=== PATIENT | male | born 1935 | race Caucasian/White ===

== ENCOUNTER 2019-02-13 11:20 | Emergency (ER) | payer MEDICARE, OTHER ==
[~2019-02-13] VITALS: Ht 172.7 cm; Wt 72.6 kg
--- OUTSIDE RECORDS SUMMARY | 2019-02-13 11:22 | XMS REPORT ---
Author Author [facility] Address Unknown Phone Unavailable Care Team Providers Care Manufacturing Test Technician Name Role Phone Unavailable Unavailable Payers Payer Name Policy Type Policy Number Effective Date Expiration Date Problems This patient has no known problems. Allergies, Adverse Reactions, Alerts Allergy Name Allergy Type Status Severity Reaction(s) Onset Date Inactive Date Treating Clinician Comments No Known Allergies DA Active U 2019-01-23 00:00:00 No Known Allergies DA Active U 2018-12-08 00:00:00 No Known Drug Intolerances DA Active U 2009-08-24 00:00:00 Medications This patient has no known medications. Results Test Description Test Time Test Comments Text Results Atomic Results Result Comments URINALYSIS COMPLETE 2018-12-08 23:58:00 UA COLOR (test code=COLU) COLORLESS YELLOW UA APPEARANCE (test code=APPU) CLEAR CLEAR UA GLUCOSE DIPSTICK (test code=DGLUU) NEGATIVE mg/dL NEGATIVE UA BILIRUBIN DIPSTICK (test code=BILU) NEGATIVE mg/dL NEGATIVE UA KETONE DIPSTICK (test code=KETU) NEGATIVE mg/dL NEGATIVE UA SPECIFIC GRAVITY (test code=SGU) 1.002 1.001-1.035 UA BLOOD DIPSTICK (test code=AMY) 1+ (Small) mg/dL NEGATIVE UA PH DIPSTICK (test code=JOHN) 6.0 5.0-8.0 UA PROTEIN DIPSTICK (test code=PROU) NEGATIVE mg/dL NEGATIVE UA UROBILINIOGEN DIPSTICK (test code=URO) NEGATIVE mg/dL NEGATIVE UA NITRITE DIPSTICK (test code=THAD) NEGATIVE NEGATIVE UA LEUKOCYTE ESTERASE W REFLEX (test code=LEUUR) TRACE Lizet/uL NEGATIVE UA WBC (test code=WBCU) 0-5 per HPF 0-5 UA RBC (test code=RBCU) 0-2 #/HPF 0-5 UA EPITHELIAL CELLS (test code=EPIU) FEW per HPF FEW Urine Source? Clean Catch
[2019-02-13] MEDS ORDERED: CLONIDINE HCL0.1 MG PO (11:44)
[2019-02-13] MEDS ORDERED: AMLODIPINE BESY10 MG PO (11:44)
[2019-02-13 12:11] LABS: CLARITY,URINE SL CLOUDY (CLEAR); COLOR,URINE YELLOW (YELLOW)
[2019-02-13 12:12] LABS: KETONES,URINE NEGATIVE (NEGATIVE)
[2019-02-13 12:13] LABS: PROTEIN,URINE DIPSTICK 2+ (NEGATIVE)
[2019-02-13 12:14] LABS: NITRITE,URINE NEGATIVE (NEGATIVE)
[2019-02-13 12:15] LABS: BILIRUBIN,URINE NEGATIVE (NEGATIVE); LEUKOCYTE ESTERASE ,URINE TRACE (NEGATIVE); URINE UROBILINOGEN 0.2 mg/dL (0.2 - 1)
[2019-02-13 12:39] LABS: BACTERIA,URINE RARE /HPF; EPITHELIAL CELLS,URINE FEW /LPF; WBC,URINE (MAN) 0-5 /HPF (0-5)
[2019-02-13] MEDS ORDERED: LEVAQUIN500 MG PO (12:48)
[2019-02-13] MEDS ORDERED: FLOMAX0.4 MG PO (12:48)
[2019-02-13 12:50] VITALS: BP 141/85
== END 2019-02-13 12:56 | disposition home or self-care (01) ==
LOC: ER 11:20
DX: N39.0 Urinary tract infection, site not specified (principal); N40.0 Benign prostatic hyperplasia without lower urinary tract symptoms
CPT/HCPCS: 81001; 99282

== ENCOUNTER 2019-03-04 09:22 | Emergency (ER) | payer MEDICARE, OTHER ==
[~2019-03-04] VITALS: Ht 172.7 cm; Wt 72.6 kg
[~2019-03-04 09:22] MED LIST: AMLODIPINE BESY10 MG PO; CLONIDINE HCL0.1 MG PO; FLOMAX0.4 MG PO; LEVAQUIN500 MG PO
--- NOTE | 2019-03-04 11:26 | NUR ---
PATIENT CONCERNED NOW THAT HIS BP IS NOW 128/81 AND HE IS REQUESTING PEDIALYTE. PER CATHI Urban "GIVE HIM SOME PEDIALYTE". THEN PATIENT ASKING ME FOR INSTRUCTIONS ON HOW TO TAKE IT. TOLD HIM WE DON'T NORMALLY GIVE THIS FOR HIS BLOOD PRESSURE, SO DON'T HAVE INSTRUCTIONS TO GIVE HIM. PATIENT UPSET. SAID WE DID NOTHING FOR HIM. EMOTIONAL SUPPORT GIVEN. LET PATIENT KNOW WE HAVE KEPT HIM IN THE HALLWAY CHAIR TO MONITOR HIM CLOSELY. WHEN ATTEMPTING TO TALKE TO PATIENT HE INTERUPTS AND STATES, "YOU NEED TO LISTEN TO ME, YOUR NOT PAYING ATTENTION. PATIENT WILL NOT LISTEN TO REASON AND INTERMITTENTLY GRABS AT DISCHARGE PAPERWORK TO LEAVE.
== END 2019-03-04 11:39 | disposition home or self-care (01) ==
LOC: ER 09:22
DX: I10 Essential (primary) hypertension (principal)
CPT/HCPCS: 99282

== ENCOUNTER 2019-05-30 08:40 | Emergency (ER) | payer MEDICARE, OTHER ==
[~2019-05-30] VITALS: Ht 172.7 cm; Wt 72.6 kg
--- NOTE | 2019-05-30 08:50 | NUR ---
PATIENT REFUSING TO DISROBE AND PLACE [facility] GOWN ON AND RUFUSING TO BE PLACED ON BEDSIDE FILTER BED PLACER. NOTIFIED DR BAEZ.
[2019-05-30 09:35] VITALS: BP 154/95
== END 2019-05-30 09:39 | disposition home or self-care (01) ==
LOC: ER 08:40
DX: I10 Essential (primary) hypertension (principal)
CPT/HCPCS: 93005; 99282

== ENCOUNTER → 2020-06-14 | Outpatient (CLI) | payer OTHER ==
--- NOTE | 2020-06-14 12:58 | Diagnostic Imaging Report ---
Testicular ultrasound, with Doppler examination. History: A similar pain. Comparison: None available. Discussion: Evaluation of the scrotum was performed in the transverse and longitudinal planes. Color Doppler and spectral wave form analysis was performed bilaterally. The testes are normal in size and echogenicity bilaterally, measuring 3.7 x 2.4 x 2.7 cm on the right and 3.8 x 2.3 x 3.0 cm on the left. There is no evidence of a mass. Normal and symmetrical flow is present within both testes. Small right hydrocele is noted. An oval anechoic structure is present in the right epididymal head measuring 3.6 x 1.6 x 3 cm. Similar cystic structure is present in the left epididymal head measuring 0.8 x 1.1 x 0.8 cm. Right inguinal peristalsing structure is noted. IMPRESSION: 1. Bilateral epididymal head cysts versus spermatoceles. 2. No testicular abnormality. 3. Bowel containing right inguinal hernia. Signed by: Carols Puckett on 06/14/2020 12:55 PM
== END ==
LOC: US 10:57
PROVIDERS: ATTEND Family Medicine
DX: N50.819 Testicular pain, unspecified (principal); K40.90 Unilateral inguinal hernia, without obstruction or gangrene, not specified as recurrent
CPT/HCPCS: 76870; 93976

== ENCOUNTER → 2020-07-09 | Day surgery (SDC) | payer OTHER, MEDICARE ==
[~2020-07-09] MED LIST changes: +BUPIVACAINE 0.25% 30ML SDV INJ ONE; +CEFAZOLIN SOD 1 GM/NS 50ML 50 ML IV ONE; +DEXAMETHASONE SOD PHOS INJ 4 MG/ML VIAL ONE; +EPHEDRINE SULFATE INJ 50 MG/ML VIAL ONE; +FENTANYL CITRATE/PF 100MCG/2 ML INJ ONE; +KETOROLAC TROMETHAMINE 30 MG/ML VIAL ONE; +LIDOCAINE HCL 2% LOCAL INJ 5 ML SDV VIAL INJ ONE; +METOPROLOL SUCC50 MG PO; +ONDANSETRON HCL INJ 2MG/ML 2ML 2 MG/ML VIAL ONE; +PROPOFOL IV EMULSION 10 MG/ML 20 ML VIAL ONE; +SEVOFLURANE INHAL SOLN 250 ML PEN BTL ONE
--- NOTE | 2020-07-09 10:07 | Operative Report ---
DATE OF PROCEDURE: SURGEON: Ricky Nieves MD PREOPERATIVE DIAGNOSIS: Incarcerated right inguinal hernia. POSTOPERATIVE DIAGNOSIS: Incarcerated right inguinal hernia. PROCEDURE PERFORMED: Repair of right inguinal hernia with Ultrapro Hernia System, oval type. ANESTHESIA: General. DRAINS: None. COMPLICATIONS: None. INDICATION AND FINDINGS: The patient is a pleasant 85-year-old healthy male admitted for repair of symptomatic right inguinal hernia with multiple episodes of incarceration. INTRAOPERATIVE FINDINGS: The patient had an indirect hernia sac that at this time was empty and some bulging of the canal. DESCRIPTION OF PROCEDURE: With the patient lying on the operative table in the supine position after administration of general anesthesia, he was given a preemptive ilioinguinal incisional block with 0.25% Marcaine. An incision was made across the right groin, deepened through the skin and subcutaneous tissue, Diane fascia until the external oblique aponeurosis was identified. This was incised along the course of its fibers transecting the external inguinal ring. Medial and lateral leaves were developed. The cord was mobilized at the level of the pubic tubercle and retracted away from the operative field by [place] drain. The cremaster vein was incised and indirect hernia sac was identified highly ligated with 2-0 silk. It was empty. The transversalis fascia was incised and then a pocket was created using blunt dissection to accommodate the mesh. The mesh was then deployed with the underlay part of the mesh over the direct space and the overlay part of the mesh over the inguinal canal floor. A slit was made to accommodate the cord and then the mesh was secured to the local tissues with a combination of 2-0 Ethibond and 2-0 Vicryl stitches and then the mesh appeared to be lying flat in good position. After we did that, we irrigated the wound, and then closed the wound using 0-Vicryl for the external oblique aponeurosis, used 2-0 Vicryl for the external oblique aponeurosis. A 2-0 plain catgut for the soft tissues and the skin was closed using didier during the procedure. A local field block was also used using 0.25% Marcaine with epinephrine. Sterile dressing was applied. The patient tolerated the procedure well taken to recovery room in stable condition. Addendum: During this procedure, the ilioinguinal nerve was identified and preserved. MD NATE Ro/HECTOR /[id number]
[2020-07-09 10:40] VITALS: BP 148/82
== END | disposition home or self-care (01) ==
LOC: OR 06:04
PROVIDERS: ATTEND Surgery
DX: K40.30 Unilateral inguinal hernia, with obstruction, without gangrene, not specified as recurrent (principal); I10 Essential (primary) hypertension; Z01.810 Encounter for preprocedural cardiovascular examination; Z01.812 Encounter for preprocedural laboratory examination; Z11.59 Encounter for screening for other viral diseases
CPT/HCPCS: 36415; 49507; 84132; 93005; C1781; J0690; J1100; J1885; J2001; J2405; J2704; U0002; J3010

== ENCOUNTER 2020-09-01 10:27 | Emergency (ER) | payer MEDICARE, OTHER ==
[~2020-09-01] VITALS: Ht 172.7 cm; Wt 72.6 kg
[~2020-09-01 10:27] MED LIST changes: -BUPIVACAINE 0.25% 30ML SDV INJ ONE; -CEFAZOLIN SOD 1 GM/NS 50ML 50 ML IV ONE; -DEXAMETHASONE SOD PHOS INJ 4 MG/ML VIAL ONE; -EPHEDRINE SULFATE INJ 50 MG/ML VIAL ONE; -FENTANYL CITRATE/PF 100MCG/2 ML INJ ONE; -KETOROLAC TROMETHAMINE 30 MG/ML VIAL ONE; -LIDOCAINE HCL 2% LOCAL INJ 5 ML SDV VIAL INJ ONE; -ONDANSETRON HCL INJ 2MG/ML 2ML 2 MG/ML VIAL ONE; -PROPOFOL IV EMULSION 10 MG/ML 20 ML VIAL ONE; -SEVOFLURANE INHAL SOLN 250 ML PEN BTL ONE
== END 2020-09-01 11:05 | disposition home or self-care (01) ==
LOC: ER 10:57
DX: I10 Essential (primary) hypertension (principal)
CPT/HCPCS: 99282

== ENCOUNTER 2020-09-28 14:36 | Emergency (ER) | payer MEDICARE, OTHER ==
[~2020-09-28] VITALS: Ht 172.7 cm; Wt 72.6 kg
[2020-09-28] MEDS ORDERED: HYDRALAZINE HCL 25 MG TAB PO ONE (16:45)
== END 2020-09-28 17:22 | disposition home or self-care (01) ==
LOC: ER 16:50
DX: I10 Essential (primary) hypertension (principal)
CPT/HCPCS: 99282

== ENCOUNTER 2020-10-16 05:15 | Emergency (ER) | payer MEDICARE, OTHER ==
[~2020-10-16] VITALS: Ht 172.7 cm; Wt 72.6 kg
[2020-10-16] MEDS ORDERED: HYDROCHLOROTHIA25 MG PO (05:48)
== END 2020-10-16 05:53 | disposition home or self-care (01) ==
LOC: ER 05:52
DX: I10 Essential (primary) hypertension (principal)
CPT/HCPCS: 99282

== ENCOUNTER 2021-10-15 01:43 | Emergency (ER) | payer MEDICARE, OTHER ==
[~2021-10-15] VITALS: Ht 172.7 cm; Wt 72.6 kg
[~2021-10-15 01:43] MED LIST changes: +HYDROCHLOROTHIA25 MG PO
== END 2021-10-15 02:08 | disposition home or self-care (01) ==
LOC: ER 01:58
DX: I10 Essential (primary) hypertension (principal)
CPT/HCPCS: 99282

== ENCOUNTER 2023-03-07 20:30 | Emergency (ER) | payer MEDICARE, OTHER ==
[~2023-03-07] VITALS: Ht 172.7 cm; Wt 72.6 kg
[2023-03-07 21:13] LABS: BASOPHILS % 0.4 % (0.0-1.0); EOSINOPHILS # (AUTO) 0.2 (0.0-0.4); EOSINOPHILS % 2.7 % (0.0-6.0); HEMATOCRIT 37.3 % (38.2-49.6); HEMOGLOBIN 13.1 g/dL (14.0-18.0); LYMPHOCYTES # (AUTO) 2.6 (1.0-3.2); LYMPHOCYTES % 37.2 % (18.0-39.1); MEAN CORPUSCULAR HEMOGLOBIN 32.4 pg (28-32); MEAN CORPUSCULAR HGB CONC 35.1 g/dL (31-35); MEAN CORPUSCULAR VOLUME 92.3 fL (81-99); MONOCYTES # (AUTO) 0.7 (0.2-0.8); MONOCYTES % 10.4 % (4.4-11.3); NEUTROPHILS # (AUTO) 3.5 (2.1-6.9); PLATELET COUNT 211 x10e3/uL (140-360); RED BLOOD COUNT 4.04 x10e6/uL (4.3-5.7); RED CELL DISTRIBUTION WIDTH 13.3 % (11.7-14.4)
[2023-03-07] MEDS ORDERED: SODIUM CHLORIDE FLUSH 10 ML SYR IV PRN (21:15)
[2023-03-07] MEDS ORDERED: CLONIDINE HCL 0.1 MG TAB PO ONE (21:15)
[2023-03-07 21:25] LABS: ALANINE AMINOTRANSFERASE 12 IU/L (0-55); ALBUMIN 3.6 g/dL (3.5-5.0); ALBUMIN/GLOBULIN RATIO 0.9 (0.8-2.0); ALKALINE PHOSPHATASE 43 IU/L (40-150); ANION GAP 16.5 mmol/L (8-16); BLOOD UREA NITROGEN 19 mg/dL (7-26); BUN/CREATININE RATIO 20 (6-25); CALCIUM 9.1 mg/dL (8.4-10.2); CARBON DIOXIDE 26 mmol/L (22-29); CHLORIDE 101 mmol/L (98-107); CREATININE, SERUM 0.95 mg/dL (0.72-1.25); GLUCOSE 98 mg/dL (74-118); POTASSIUM 3.5 mmol/L (3.5-5.1); SODIUM 140 mmol/L (136-145)
[2023-03-07 21:41] VITALS: O2SAT 98
== END 2023-03-07 21:56 | disposition home or self-care (01) ==
LOC: ER 20:37
DX: I10 Essential (primary) hypertension (principal)
CPT/HCPCS: 36415; 80053; 83880; 84484; 85025; 93005; 94760; 99284